=== PATIENT | male | born 1995 | race African-American/Black ===

== ENCOUNTER 2018-01-09 18:35 | Emergency (ER) | payer OTHER ==
[2018-01-09 19:26] LABS: #Lymphocytes 1.9 thou/uL (1.20-3.40); #Monocytes 0.4 thou/uL (0.11-0.59); #Neutrophils 3.3 thou/uL (1.40-6.50); %Basophils 0.3 % (0.0-1.0); %Eosinophils 0.8 % (0.0-10.0); %Lymphocytes 33.3 % (21.0-51.0); %Monocytes 7.5 % (0.0-10.0); %Neutrophils 58.1 % (42.0-75.0); Hemoglobin 14.8 g/dL (14.0-18.0); Mean Corpuscular HGB CONC 34.9 g/dL (32.0-36.0); Mean Corpuscular Hemoglobin 30.4 pg (27.0-31.0); Mean Corpuscular Volume 87.1 fl (80.0-94.0); Mean Platelet Volume 7.1 fL (7.4-10.4); Platelet Count 222 thou/uL (130-400); RBC Distribution Width 12.2 % (11.5-14.5); Red Blood Cell (RBC) Count 4.86 mill/uL (4.70-6.10); White Blood Cell (WBC) Count 5.6 thou/uL (4.8-10.8)
[2018-01-09 19:45] LABS: Anion Gap 10 mmol/L (10-20); BUN (Urea Nitrogen) 15 mg/dL (8.9-20.6); CK (CPK) 56 U/L (30-200); Calc. Creatinine Clearance 0 mL/min (70-130); Calcium 9.4 mg/dL (7.8-10.44); Carbon Dioxide 28 mmol/L (22-29); Chloride 105 mmol/L (98-107); Estimated GFR-MDRD Greater than 90; Potassium 3.9 mmol/L (3.5-5.1)
[2018-01-09 19:51] LABS: Sodium 139 mmol/L (136-145)
[2018-01-09 19:53] LABS: Glucose 51 mg/dL (70-105)
--- NOTE | 2018-01-09 19:53 | RAD ---
CHEST ONE VIEW UPRIGHT PORTABLE: 01/09/18 HISTORY: 22-year-old male with history of syncope. Monitor leads overlie the chest. Heart size is within normal limits. The lungs are clear. IMPRESSION: No acute intrathoracic disease. POS: [facility]
== END 2018-01-09 20:06 | disposition home or self-care (01) ==
LOC: ERS 18:35
DX: F14.10 Cocaine abuse, uncomplicated (principal); R55 Syncope and collapse; E86.0 Dehydration; F31.9 Bipolar disorder, unspecified; F90.9 Attention-deficit hyperactivity disorder, unspecified type; G47.00 Insomnia, unspecified; F17.210 Nicotine dependence, cigarettes, uncomplicated
CPT/HCPCS: 36415; 36416; 71045; 80048; 82550; 85025; 93005; 96360

== ENCOUNTER 2018-06-11 02:47 | Emergency (ER) | payer OTHER ==
[2018-06-11 03:59] LABS: #Lymphocytes 1.3 thou/uL (1.20-3.40); #Monocytes 0.5 thou/uL (0.11-0.59); #Neutrophils 6.3 thou/uL (1.40-6.50); %Basophils 0.4 % (0.0-1.0); %Eosinophils 0.3 % (0.0-10.0); %Lymphocytes 15.4 % (21.0-51.0); %Monocytes 5.8 % (0.0-10.0); Hemoglobin 16.3 g/dL (14.0-18.0); Mean Corpuscular HGB CONC 33.2 g/dL (32.0-36.0); Mean Corpuscular Hemoglobin 29.9 pg (27.0-31.0); Mean Platelet Volume 7.8 fL (7.4-10.4); Platelet Count 303 thou/uL (130-400); RBC Distribution Width 11.8 % (11.5-14.5); Red Blood Cell (RBC) Count 5.46 mill/uL (4.70-6.10); White Blood Cell (WBC) Count 8.1 thou/uL (4.8-10.8)
[2018-06-11 04:21] LABS: Acetaminophen Less than 6.0 mcg/mL (10.0-30.0); Alcohol Less than 10 mg/dL (Less than 10); Salicylate Less than 8.0 mg/dL (15.0-30.0)
[2018-06-11 04:22] LABS: ALT (SGPT) 17 U/L (8-55); AST (SGOT) 19 U/L (5-34); Albumin 4.9 g/dL (3.5-5.0); Alkaline Phosphatase 68 U/L (40-150); Anion Gap 17 mmol/L (10-20); BUN (Urea Nitrogen) 14 mg/dL (8.9-20.6); Bilirubin, Total 0.8 mg/dL (0.2-1.2); Calc. Creatinine Clearance 0 mL/min (70-130); Calcium 10.3 mg/dL (7.8-10.44); Carbon Dioxide 24 mmol/L (22-29); Chloride 104 mmol/L (98-107); Estimated GFR-MDRD Greater than 90; Globulin 3.5 g/dL (2.4-3.5); Glucose 61 mg/dL (70-105); Potassium 3.8 mmol/L (3.5-5.1); Protein, Total 8.4 g/dL (6.0-8.3); Sodium 141 mmol/L (136-145)
[2018-06-11 05:30] LABS: Bilirubin Negative (Negative); Blood, Urine Negative (Negative); Clarity CLEAR (Clear); Glucose, Urine (Dipstick) Negative (Negative); Leukocyte Negative (Negative); Nitrite Negative (Negative); Protein, Urine (Dipstick) Trace mg/dL (Neg-Trace); Urobilinogen 0.2 mg/dL (0.2-1.0)
[2018-06-11 05:49] LABS: Medtox Reader # READER 1
[2018-06-11 05:50] LABS: Amphetamine Detected (NotDetected); Barbiturates Screen Not Detected (NotDetected); Benzodiazepine Screen Not Detected (NotDetected); Cocaine Metabolite Screen Not Detected (NotDetected); Medtox Control Line Valid? VALID (VALID); Methadone Not Detected (NotDetected); Methamphetamine Not Detected (NotDetected); Opiate Screen Not Detected (NotDetected); Oxycodone Screen Not Detected (NotDetected); Phencyclidine (PCP) Not Detected (NotDetected); THC/Cannabinoid Screen Detected (NotDetected); Tricyclic Screen Not Detected (NotDetected)
[2018-06-11] MEDS ORDERED: Ziprasidone 20 MG CAP ONE (07:54)
--- NOTE | 2018-06-22 16:14 | EKG ---
Test Reason : Blood Pressure : / mmHG Vent. Rate : 067 BPM Atrial Rate : 067 BPM P-R Int : 096 ms QRS Dur : 090 ms QT Int : 400 ms P-R-T Axes : -27 047 046 degrees QTc Int : 422 ms Sinus rhythm with short DE Otherwise normal ECG Reconfirmed by COOKIE PIPER ([id number]), editor house organ SONIA LIZ ([id number]) on 06/22/2018 4:14:21 PM Referred By: Confirmed By:COOKIE PIPER
== END 2018-06-11 10:20 | disposition home or self-care (01) ==
LOC: ERS 02:47
DX: F15.129 Other stimulant abuse with intoxication, unspecified (principal); F31.9 Bipolar disorder, unspecified; F90.9 Attention-deficit hyperactivity disorder, unspecified type; G47.00 Insomnia, unspecified; F17.210 Nicotine dependence, cigarettes, uncomplicated
CPT/HCPCS: 80053; 80306; 80307; 81003; 84443; 85025; 93005; 96360; 96361

== ENCOUNTER 2018-09-17 01:08 | Emergency (ER) | payer OTHER ==
[2018-09-17 01:53] LABS: #Lymphocytes 0.8 thou/uL (1.20-3.40); #Monocytes 0.4 thou/uL (0.11-0.59); #Neutrophils 3.9 thou/uL (1.40-6.50); %Basophils 0.5 % (0.0-1.0); %Eosinophils 0.8 % (0.0-10.0); %Lymphocytes 15.6 % (21.0-51.0); %Monocytes 8.4 % (0.0-10.0); %Neutrophils 74.8 % (42.0-75.0); Hemoglobin 14.1 g/dL (14.0-18.0); Mean Corpuscular Hemoglobin 30.5 pg (27.0-31.0); Mean Corpuscular Volume 89.7 fL (78.0-98.0); Mean Platelet Volume 7.8 fL (7.4-10.4); Platelet Count 239 thou/uL (130-400); RBC Distribution Width 11.5 % (11.5-14.5); Red Blood Cell (RBC) Count 4.61 mill/uL (4.70-6.10); White Blood Cell (WBC) Count 5.3 thou/uL (4.8-10.8)
[2018-09-17 02:13] LABS: Acetaminophen Less than 6.0 mcg/mL (10.0-30.0); Alcohol Less than 10 mg/dL (Less than 10); Salicylate Less than 8.0 mg/dL (15.0-30.0)
[2018-09-17 02:45] LABS: Bilirubin Negative (Negative); Blood, Urine Negative (Negative); Clarity CLEAR (Clear); Glucose, Urine (Dipstick) Negative (Negative); Leukocyte Negative (Negative); Nitrite Negative (Negative); Protein, Urine (Dipstick) Trace mg/dL (Neg-Trace); Specific Gravity, Urine 1.031 (1.002-1.036); Urobilinogen 0.2 mg/dL (0.2-1.0); pH, Urine 5.5 (5.0-9.0)
[2018-09-17 02:54] LABS: ALT (SGPT) 11 U/L (8-55); AST (SGOT) 16 U/L (5-34); Albumin 3.9 g/dL (3.5-5.0); Alkaline Phosphatase 62 U/L (40-150); Anion Gap 13 mmol/L (10-20); BUN (Urea Nitrogen) 12 mg/dL (8.9-20.6); Bilirubin, Total 0.4 mg/dL (0.2-1.2); CK (CPK) 163 U/L (30-200); Calc. Creatinine Clearance 0 mL/min (70-130); Calcium 9.1 mg/dL (7.8-10.44); Carbon Dioxide 25 mmol/L (22-29); Chloride 106 mmol/L (98-107); Estimated GFR-MDRD Greater than 90; Globulin 2.6 g/dL (2.4-3.5); Glucose 85 mg/dL (70-105); Potassium 3.8 mmol/L (3.5-5.1); Protein, Total 6.5 g/dL (6.0-8.3); Sodium 140 mmol/L (136-145)
[2018-09-17 02:54] LABS: Amphetamine Detected (NotDetected); Barbiturates Screen Not Detected (NotDetected); Benzodiazepine Screen Not Detected (NotDetected); Cocaine Metabolite Screen Not Detected (NotDetected); Medtox Control Line Valid? VALID (VALID); Medtox Reader # READER 1; Methadone Not Detected (NotDetected); Methamphetamine Detected (NotDetected); Opiate Screen Not Detected (NotDetected); Oxycodone Screen Not Detected (NotDetected); Phencyclidine (PCP) Not Detected (NotDetected); THC/Cannabinoid Screen Detected (NotDetected); Tricyclic Screen Not Detected (NotDetected)
--- NOTE | 2018-09-17 07:42 | RAD ---
2 VIEWS CHEST: Date: 09/17/18 COMPARISON: None. HISTORY: Congestion and productive green cough. FINDINGS: Single view of the chest shows a normal sized cardiomediastinal silhouette. There is no evidence of c onsolidation, mass, or pleural effusion. There is scoliotic curvature of the spine. IMPRESSION: No evidence of acute cardiopulmonary disease. POS: [facility]
== END 2018-09-17 10:45 | disposition home or self-care (01) ==
LOC: ERS 01:08
DX: F32.9 Major depressive disorder, single episode, unspecified (principal); R09.81 Nasal congestion; B20 Human immunodeficiency virus [HIV] disease; F90.9 Attention-deficit hyperactivity disorder, unspecified type; F17.210 Nicotine dependence, cigarettes, uncomplicated
CPT/HCPCS: 36415; 71046; 80053; 80306; 80307; 81003; 82550; 84443; 85025

== ENCOUNTER 2018-09-27 19:55 | Observation (INO) | payer OTHER ==
[2018-09-27] MEDS ORDERED: Acetaminophen 325 MG TAB PO PRN (21:51)
[2018-09-27] MEDS ORDERED: Ondansetron ODT 4 MG TAB PO PRN (21:51)
[2018-09-27] MEDS ORDERED: Ondansetron PF 4 MG/2 ML Vial IVP PRN (21:51)
[2018-09-27 22:51] VITALS: BMI 20.9
[2018-09-27] MEDS: ALPRAZolam 0.25 MG TAB PO PRN (23:15)
[2018-09-27] MEDS ORDERED: Sodium Chloride 0.9% 1,000 ML IV SCH (23:15)
[2018-09-28] MEDS: Sodium Chloride 0.9% 1,000 ML IV SCH ×3 (05:51→20:34)
--- NOTE | 2018-09-28 06:19 | HP ---
PRIMARY CARE DOCTOR: The patient has no PCP. CODE STATUS: Full code. TIME OF EVALUATION: 08:50 p.m. CHIEF COMPLAINT: Suicidal attempt. HISTORY OF PRESENT ILLNESS: This is a 22-year-old male patient with past medical history of psych disorders and previous suicidal attempts, came to the hospital after having an episode of suicidal attempt. The patient reported that he took 3 MDMA prior to presentation. The patient reported that he was depressed and was trying to kill himself in order to call attention from other people, no alleviating factors. The patient seems more relief now. Suicide ideation is still present. REVIEW OF SYSTEMS: CONSTITUTIONAL: No fever, chills, or generalized weakness. RESPIRATORY: No cough, sputum production, or shortness of breath. CARDIOVASCULAR: No chest pain or palpitations. GASTROINTESTINAL: No nausea. No vomiting, diarrhea, or abdominal pain. FAITH HEALER: The patient is drowsy, but more alert than before as per report. No headache or feeling lightheaded. GENITOURINARY: No burning on urination. EXTREMITIES: No leg swelling. PSYCH: The patient has suicidal ideation. All other systems were reviewed and negative except for the findings mentioned above. PAST MEDICAL HISTORY: Positive for HIV. Follows with Dr. Xiong. PAST SURGICAL HISTORY: No surgical history. PSYCH HISTORY: Previous admissions due to suicidal ideation, bipolar disorder. SOCIAL HISTORY: Drinks everyday, alcohol every other today. Smokes cigarettes. Abuse methamphetamines, alcohol, and tobacco. KNOWN ALLERGIES: 1. Cipro. 2. Penicillin. 3. Sulfamethoxazole. PHYSICAL EXAMINATION: VITAL SIGNS: Blood pressure 127/88 with heart rate 67, respiratory rate was 18, temperature 98.4, pain 0/10, oxygen saturation was 100 on room air. GENERAL APPEARANCE: The patient is alert, oriented, not in acute distress. HEENT: Eyes, normal conjunctivae. Moist oral mucosa. Anicteric. NECK: No JVD. RESPIRATORY: Bilateral air entry. No rales. No wheezes. Symmetric expansion. CARDIOVASCULAR: Normal rate, regular rhythm. No murmurs. No gallops. No edema. ABDOMEN: Soft. Normal bowel sounds. MUSCULOSKELETAL: Baseline range of motion and strength. No tenderness. SKIN: Warm and intact. No pallor. No rash. No redness. Peripheral pulses are present. Capillary refill seems to intact. NEUROLOGIC: No evidence of any new focal weakness. Baseline speech. Cranial nerves seems to be intact. PSYCH: The patient is depressed, suicidal ideation is still active. LABORATORY DATA: Labs were reviewed. White count 8.5, hemoglobin 14.4, MCV 87. Chemistry was normal except for chloride 108, carbon dioxide 21, glucose 108. AST 142. CK 4220. UA was negative. Toxicology was positive for amphetamines, methamphetamines, and cannabinoids. [place] is 8. ASSESSMENT AND PLAN: The patient will be placed in the hospital with following medical problems: 1. Suicidal ideation and attempt. The patient got overdose. The patient is doing better now. We will continue with a sitter and will need a psych evaluation in the morning. 2. He has elevated CK of 4220. We will give hydration. We will monitor CK and adjust treatment as needed. Monitor kidney function. 3. Deep venous thrombosis prophylaxis. 4. High risk due to suicidal attempt. Job ID: [id number]
[2018-09-28 06:40] LABS: #Eosinphils 0.1 thou/uL (0.0-0.7); #Lymphocytes 1.8 thou/uL (1.20-3.40); #Monocytes 0.7 thou/uL (0.11-0.59); #Neutrophils 4.4 thou/uL (1.40-6.50); %Basophils 0.4 % (0.0-1.0); %Eosinophils 1.2 % (0.0-10.0); %Lymphocytes 26.1 % (21.0-51.0); %Monocytes 9.3 % (0.0-10.0); %Neutrophils 63.1 % (42.0-75.0); Hemoglobin 13.4 g/dL (14.0-18.0); Mean Corpuscular HGB CONC 33.4 g/dL (32.0-36.0); Mean Corpuscular Hemoglobin 30.2 pg (27.0-31.0); Mean Corpuscular Volume 90.6 fL (78.0-98.0); Platelet Count 280 thou/uL (130-400); RBC Distribution Width 11.6 % (11.5-14.5); Red Blood Cell (RBC) Count 4.45 mill/uL (4.70-6.10); White Blood Cell (WBC) Count 6.9 thou/uL (4.8-10.8)
[2018-09-28 07:02] LABS: Anion Gap 12 mmol/L (10-20); BUN (Urea Nitrogen) 11 mg/dL (8.9-20.6); Calc. Creatinine Clearance 101 mL/min (70-130); Carbon Dioxide 22 mmol/L (22-29); Chloride 111 mmol/L (98-107); Estimated GFR-MDRD Greater than 90; Glucose 75 mg/dL (70-105); Potassium 4.4 mmol/L (3.5-5.1); Sodium 141 mmol/L (136-145)
[2018-09-28] MEDS: Enoxaparin Sodium 40 MG/0.4 ML SYRINGE SC SCH (07:41)
[2018-09-28] MEDS: ALPRAZolam 0.25 MG TAB PO PRN ×2 (08:34→20:34)
--- NOTE | 2018-09-28 14:00 | PDOC.PN ---
- Subjective Encounter Start Date: 09/28/18 Encounter Start Time: 13:31 Subjective: Patient found sleeping. Denies any complaints. -: Has been tolerating food/liquids. No n/v. No abdominal pain. -: Denies any chest pain or sob. Feeling well in himself. At present denies any suicidal ideations. - Objective Resuscitation Status - Order Detail: 09/27/18 21:51 Resuscitation Status Routine Resuscitation Status: FULL: Full Resuscitation Vital Signs & Weight: Vital Signs (12 hours) Temp Pulse Resp BP Pulse Ox 09/28/18 11:29 97.9 F 59 L 20 132/95 H 95 09/28/18 08:00 98.6 F 69 18 127/83 99 09/28/18 04:08 98.3 F 72 16 122/76 97 Weight Weight 137 lb 8 oz I&O: 09/27/18 09/28/18 09/29/18 06:59 06:59 06:59 Intake Total 2845 360 Balance 2845 360 Result Diagrams: 09/28/18 06:01 09/28/18 06:01 Phys Exam - Physical Examination Constitutional: NAD HEENT: PERRLA, moist MMs, oral pharynx no lesions Neck: full ROM Respiratory: clear to auscultation bilateral Cardiovascular: RRR Gastrointestinal: soft, non-tender, no distention, positive bowel sounds Musculoskeletal: no edema, pulses present Neurological: normal sensation, moves all 4 limbs Lymphatic: no nodes Psychiatric: normal affect, A&O x 3 Skin: no rash, normal turgor, cap refill <2 seconds Dx/Plan (1) Overdose Code(s): T50.901A - POISONING BY UNSP DRUG/MEDS/BIOL SUBST, ACCIDENTAL, INIT Status: Acute (2) Suicidal ideation Code(s): R45.851 - SUICIDAL IDEATIONS Status: Acute (3) Suicidal intent Code(s): R45.851 - SUICIDAL IDEATIONS Status: Acute (4) Bipolar disorder Code(s): F31.9 - BIPOLAR DISORDER, UNSPECIFIED Status: Chronic - Plan cont current plan of care CK improved from 4220 to 1869 -: Continue IV fluids. Recheck in AM. -: Patient asymptomatic. -: For [facility] eval once medically cleared. -: Denies SI at present, continue with sitter. * . Review of Systems - Review of Systems Constitutional: negative: fever, chills, sweats, weakness, malaise Eyes: negative: Pain, Vision Change, Conjunctivae Inflammation, Eyelid Inflammation, Redness ENT: negative: Mouth Pain, Mouth Swelling, Throat Pain, Throat Swelling Respiratory: negative: Cough, Dry, Shortness of Breath, Hemoptysis, SOB with Excertion, Pleuritic Pain, Sputum, Wheezing Cardiovascular: negative: chest pain, palpitations, orthopnea, paroxysmal nocturnal dyspnea, edema, light headedness, other Gastrointestinal: negative: Nausea, Vomiting, Abdominal Pain, Diarrhea, Constipation, Melena, Hematochezia, Other Genitourinary: negative: Dysuria, Frequency, Hematuria Skin: negative: Rash Neurological: negative: Weakness, Numbness, Incoordination, Change in Speech, Confusion, Seizures - Medications/Allergies Allergies/Adverse Reactions: Allergies Allergy/AdvReac Type Severity Reaction Status Date / Time ciprofloxacin [From Cipro] Allergy Verified 09/27/18 22:48 ciprofloxacin HCl Allergy Verified 09/27/18 22:48 [From Cipro] Penicillins Allergy Verified 09/27/18 22:48 sulfamethoxazole Allergy Verified 09/27/18 22:48 [From Bactrim] trimethoprim [From Bactrim] Allergy Verified 09/27/18 22:48 Medications: Current Medications Acetaminophen (Tylenol) 650 mg PO Q4H PRN PRN Reason: Headache/Fever/Mild Pain (1-3) Last Admin: 09/28/18 10:55 Dose: 650 mg Alprazolam (Xanax) 0.25 mg PO Q12H PRN PRN Reason: Anxiety Last Admin: 09/28/18 08:34 Dose: 0.25 mg Enoxaparin Sodium (Lovenox) 40 mg SC 0900 [facility] Last Admin: 09/28/18 07:41 Dose: 40 mg Sodium Chloride (Normal Saline 0.9%) 1,000 mls @ 150 mls/hr IV .Q6H40M [facility] Last Admin: 09/28/18 11:24 Dose: 1,000 mls Ondansetron HCl (Zofran Odt) 4 mg PO Q6H PRN PRN Reason: Nausea/Vomiting Ondansetron HCl (Zofran) 4 mg IVP Q6H PRN PRN Reason: Nausea/Vomiting Dolutegravir Sodium ([Tivicay] 50 Mg)) 1 each PO DAILY GHANSHYAM Emtricitabine/Tenofov Alafenam [ Descovy 200-25 Mg Tablet] 1 Ta 1 each PO DAILY GHANSHYAM
[2018-09-29] MEDS: Sodium Chloride 0.9% 1,000 ML IV SCH ×3 (03:20→14:22)
[2018-09-29 07:37] LABS: #Eosinphils 0.1 thou/uL (0.0-0.7); #Lymphocytes 1.1 thou/uL (1.20-3.40); #Monocytes 0.5 thou/uL (0.11-0.59); #Neutrophils 4.6 thou/uL (1.40-6.50); %Basophils 0.2 % (0.0-1.0); %Eosinophils 0.9 % (0.0-10.0); %Lymphocytes 17.1 % (21.0-51.0); %Monocytes 8.2 % (0.0-10.0); %Neutrophils 73.5 % (42.0-75.0); Hemoglobin 13.7 g/dL (14.0-18.0); Mean Corpuscular HGB CONC 33.1 g/dL (32.0-36.0); Mean Corpuscular Volume 90.6 fL (78.0-98.0); Mean Platelet Volume 7.9 fL (7.4-10.4); Platelet Count 257 thou/uL (130-400); RBC Distribution Width 11.8 % (11.5-14.5); Red Blood Cell (RBC) Count 4.56 mill/uL (4.70-6.10); White Blood Cell (WBC) Count 6.3 thou/uL (4.8-10.8)
[2018-09-29 07:52] LABS: Anion Gap 10 mmol/L (10-20); BUN (Urea Nitrogen) 7 mg/dL (8.9-20.6); CK (CPK) 629 U/L (30-200); Calc. Creatinine Clearance 120 mL/min (70-130); Calcium 8.9 mg/dL (7.8-10.44); Carbon Dioxide 25 mmol/L (22-29); Chloride 108 mmol/L (98-107); Estimated GFR-MDRD Greater than 90; Glucose 81 mg/dL (70-105); Potassium 3.9 mmol/L (3.5-5.1); Sodium 139 mmol/L (136-145)
[2018-09-29] MEDS: Enoxaparin Sodium 40 MG/0.4 ML SYRINGE SC SCH (08:23)
[2018-09-29] MEDS: ALPRAZolam 0.25 MG TAB PO PRN (08:28)
[2018-09-29 11:57] VITALS: BP 130/77; TEMP 98.2
[2018-09-29] MEDS ORDERED: TENOFOV ALAFENAM PO SCH (14:00)
[2018-09-29] MEDS ORDERED: EMTRICITABINE PO SCH (14:00)
[2018-09-29] MEDS ORDERED: DOLUTEGRAVIR SODIUM 50 MG PO SCH (14:00)
[2018-09-29] MEDS: TENOFOV ALAFENAM PO SCH ×2 (14:36→14:37)
[2018-09-29] MEDS: EMTRICITABINE PO SCH ×2 (14:36→14:37)
[2018-09-29] MEDS: DOLUTEGRAVIR SODIUM 50 MG PO SCH (14:36)
--- NOTE | 2018-09-29 16:41 | PDOC.EVN ---
Event Note - Event Note Event Note: management and discharge discussed with Alessandro Womack. agree
== END 2018-09-29 15:11 ==
LOC: ERS 19:55 → T4-B 20:26 → UNDODISOB 09-29 14:00
PROVIDERS: ADMIT Hospitalist; ATTEND Hospitalist
DX: T43.642A Poisoning by ecstasy, intentional self-harm, initial encounter (principal); F31.9 Bipolar disorder, unspecified; F15.10 Other stimulant abuse, uncomplicated; F17.210 Nicotine dependence, cigarettes, uncomplicated; Z21 Asymptomatic human immunodeficiency virus [HIV] infection status; Z88.1 Allergy status to other antibiotic agents; Z88.0 Allergy status to penicillin; Z88.2 Allergy status to sulfonamides; Z79.899 Other long term (current) drug therapy
CPT/HCPCS: 36415; 80048; 82550; 85025; 96360; 96361; 96372; 99285; G0378; J1650

== ENCOUNTER 2018-10-15 00:16 | Emergency (ER) | payer OTHER ==
[2018-10-15] MEDS ORDERED: Lorazepam 1 MG TAB ONE (00:31)
== END 2018-10-15 01:18 | disposition home or self-care (01) ==
LOC: ERS 00:16
DX: F41.9 Anxiety disorder, unspecified (principal); F31.9 Bipolar disorder, unspecified; B20 Human immunodeficiency virus [HIV] disease; F90.9 Attention-deficit hyperactivity disorder, unspecified type; G47.00 Insomnia, unspecified; F17.210 Nicotine dependence, cigarettes, uncomplicated; Z79.899 Other long term (current) drug therapy
CPT/HCPCS: 99283

== ENCOUNTER 2019-10-08 14:02 | Emergency (ER) | payer OTHER ==
[2019-10-08] MEDS ORDERED: diphenhydrAMINE 50 MG/ML VIAL ONE (14:57)
[2019-10-08] MEDS ORDERED: Famotidine/PF 20 mg/2ml Vial ONE (14:57)
[2019-10-08] MEDS ORDERED: methylPREDNISolone Sod Succ/PF 125 MG/2 ML VIAL ONE (14:57)
[2019-10-08] MEDS ORDERED: EPINEPHrine 1 MG/ML AMP ONE ×2 (15:01→15:06)
[2019-10-08 15:20] LABS: #Eosinphils 0.1 thou/uL (0.0-0.7); #Monocytes 0.5 thou/uL (0.11-0.59); #Neutrophils 3.4 thou/uL (1.40-6.50); %Basophils 0.7 % (0.0-1.0); %Eosinophils 1.1 % (0.0-10.0); %Lymphocytes 33.4 % (21.0-51.0); %Monocytes 7.8 % (0.0-10.0); Hemoglobin 16.1 g/dL (14.0-18.0); Mean Corpuscular HGB CONC 34.5 g/dL (32.0-36.0); Mean Corpuscular Hemoglobin 31.3 pg (27.0-31.0); Mean Corpuscular Volume 90.8 fL (78.0-98.0); Mean Platelet Volume 8.1 fL (7.4-10.4); Platelet Count 246 thou/uL (130-400); RBC Distribution Width 11.9 % (11.5-14.5); Red Blood Cell (RBC) Count 5.16 mill/uL (4.70-6.10)
[2019-10-08 15:52] LABS: ALT (SGPT) 13 U/L (8-55); AST (SGOT) 12 U/L (5-34); Albumin 4.3 g/dL (3.5-5.0); Alkaline Phosphatase 72 U/L (40-110); Anion Gap 13 mmol/L (10-20); BUN (Urea Nitrogen) 14 mg/dL (8.9-20.6); Bilirubin, Total 0.5 mg/dL (0.2-1.2); Calc. Creatinine Clearance 0 mL/min (70-130); Calcium 9.5 mg/dL (7.8-10.44); Carbon Dioxide 26 mmol/L (22-29); Chloride 105 mmol/L (98-107); Estimated GFR-MDRD Greater than 90; Globulin 2.7 g/dL (2.4-3.5); Glucose 89 mg/dL (70-105); Potassium 3.7 mmol/L (3.5-5.1); Sodium 140 mmol/L (136-145)
== END 2019-10-08 19:55 | disposition short-term general hospital (02) ==
LOC: ERS 14:02
DX: T78.2XXA Anaphylactic shock, unspecified, initial encounter (principal); B20 Human immunodeficiency virus [HIV] disease; F90.9 Attention-deficit hyperactivity disorder, unspecified type; G47.00 Insomnia, unspecified; F17.210 Nicotine dependence, cigarettes, uncomplicated; F31.9 Bipolar disorder, unspecified; Z79.899 Other long term (current) drug therapy
CPT/HCPCS: 80053; 85025; 93005; 94640; 94760; 96361; 96372; 96374; 96375; J0171; J1200; J2930; J7620; S0028

== ENCOUNTER 2019-10-29 12:26 | Emergency (ER) | payer OTHER ==
[2019-10-29 13:39] LABS: #Eosinphils 0.1 thou/uL (0.0-0.7); #Lymphocytes 1.5 thou/uL (1.20-3.40); #Monocytes 0.6 thou/uL (0.11-0.59); %Basophils 0.4 % (0.0-1.0); %Eosinophils 1.4 % (0.0-10.0); %Lymphocytes 27.8 % (21.0-51.0); %Neutrophils 58.4 % (42.0-75.0); Mean Corpuscular HGB CONC 34.4 g/dL (32.0-36.0); Mean Corpuscular Hemoglobin 30.9 pg (27.0-31.0); Mean Corpuscular Volume 89.8 fL (78.0-98.0); RBC Distribution Width 11.4 % (11.5-14.5); Red Blood Cell (RBC) Count 5.17 mill/uL (4.70-6.10); White Blood Cell (WBC) Count 5.2 thou/uL (4.8-10.8)
[2019-10-29 13:53] LABS: Acetaminophen Less than 6.0 mcg/mL (10.0-30.0); Alcohol Less than 10 mg/dL (Less than 10); Mean Platelet Volume 9.2 fL (7.4-10.4); Platelet Count 204 thou/uL (130-400); Platelet Morphology Comment Appears Adequate; Salicylate Less than 8.0 mg/dL (15.0-30.0)
[2019-10-29 13:54] LABS: ALT (SGPT) 12 U/L (8-55); AST (SGOT) 14 U/L (5-34); Albumin 4.1 g/dL (3.5-5.0); Alkaline Phosphatase 67 U/L (40-110); Anion Gap 15 mmol/L (10-20); BUN (Urea Nitrogen) 13 mg/dL (8.9-20.6); Bilirubin, Total 0.8 mg/dL (0.2-1.2); CK (CPK) 126 U/L (30-200); Calc. Creatinine Clearance 0 mL/min (70-130); Calcium 9.5 mg/dL (7.8-10.44); Carbon Dioxide 24 mmol/L (22-29); Chloride 104 mmol/L (98-107); Estimated GFR-MDRD Greater than 90; Globulin 2.5 g/dL (2.4-3.5); Glucose 63 mg/dL (70-105); Protein, Total 6.6 g/dL (6.0-8.3); Sodium 139 mmol/L (136-145)
[2019-10-29 14:46] LABS: Bilirubin Negative (Negative); Blood, Urine Negative (Negative); Clarity Clear (Clear); Glucose, Urine (Dipstick) Normal (Negative); Leukocyte Negative Leu/uL (Negative); Nitrite Negative (Negative); Protein, Urine (Dipstick) Negative (Neg-Trace); Urobilinogen Normal mg/dL (Less than 2)
[2019-10-29 14:58] LABS: Medtox Reader # READER 4
[2019-10-29 14:59] LABS: Amphetamine Detected (NotDetected); Barbiturates Screen Not Detected (NotDetected); Benzodiazepine Screen Detected (NotDetected); Cocaine Metabolite Screen Not Detected (NotDetected); Medtox Control Line Valid? VALID (VALID); Methadone Not Detected (NotDetected); Methamphetamine Detected (NotDetected); Opiate Screen Not Detected (NotDetected); Oxycodone Screen Not Detected (NotDetected); Phencyclidine (PCP) Not Detected (NotDetected); THC/Cannabinoid Screen Detected (NotDetected); Tricyclic Screen Not Detected (NotDetected)
[2019-10-29] MEDS ORDERED: hydrOXYzine Pamoate 25 mg Capsule ONE (20:34)
== END 2019-10-29 21:01 ==
LOC: ERS 12:26
DX: R45.851 Suicidal ideations (principal); B20 Human immunodeficiency virus [HIV] disease; F31.9 Bipolar disorder, unspecified; F90.9 Attention-deficit hyperactivity disorder, unspecified type; F17.210 Nicotine dependence, cigarettes, uncomplicated
CPT/HCPCS: 36415; 80053; 80178; 80306; 80307; 81003; 82550; 84443; 85025; 93005; Q0177

== ENCOUNTER 2020-11-01 23:43 | Emergency (ER) | payer OTHER ==
[2020-11-02 00:19] LABS: #Lymphocytes 1.9 thou/uL (1.20-3.40); #Monocytes 0.9 thou/uL (0.11-0.59); #Neutrophils 6.4 thou/uL (1.40-6.50); %Basophils 0.5 % (0.0-1.0); %Eosinophils 0.5 % (0.0-10.0); %Lymphocytes 20.7 % (21.0-51.0); %Monocytes 9.2 % (0.0-10.0); %Neutrophils 69.1 % (42.0-75.0); Hemoglobin 16.1 g/dL (14.0-18.0); Mean Corpuscular HGB CONC 34.8 g/dL (32.0-36.0); Mean Corpuscular Hemoglobin 30.3 pg (27.0-31.0); Mean Platelet Volume 7.8 fL (7.4-10.4); Platelet Count 304 thou/uL (130-400); RBC Distribution Width 11.2 % (11.5-14.5); Red Blood Cell (RBC) Count 5.33 mill/uL (4.70-6.10); White Blood Cell (WBC) Count 9.3 thou/uL (4.8-10.8)
[2020-11-02 00:29] LABS: Bacteria/HPF None Seen HPF (None Seen); Bilirubin 1+ (Negative); Blood, Urine Negative (Negative); Clarity Clear (Clear); Glucose, Urine (Dipstick) Normal (Negative); Ketone, Urine 60 mg/dL (Negative); Leukocyte Negative Leu/uL (Negative); Mucous/LPF 4+ LPF (<2+); Nitrite Negative (Negative); Protein, Urine (Dipstick) 50 mg/dL (Neg-Trace); RBC/HPF 0-3 HPF (0-3); Specific Gravity, Urine 1.034 (1.002-1.036); Squamous Epithelial 0-3 HPF (0-3); WBC/HPF 0-3 HPF (0-3); pH, Urine 5.5 (5.0-9.0)
[2020-11-02 00:36] LABS: Amphetamine Detected (NotDetected); Barbiturates Screen Not Detected (NotDetected); Benzodiazepine Screen Not Detected (NotDetected); Cocaine Metabolite Screen Not Detected (NotDetected); Medtox Control Line Valid? VALID (VALID); Medtox Reader # READER 4; Methadone Not Detected (NotDetected); Methamphetamine Detected (NotDetected); Opiate Screen Not Detected (NotDetected); Oxycodone Screen Not Detected (NotDetected); Phencyclidine (PCP) Not Detected (NotDetected); THC/Cannabinoid Screen Detected (NotDetected); Tricyclic Screen Not Detected (NotDetected)
[2020-11-02 00:40] LABS: Acetaminophen Less than 6.0 mcg/mL (10.0-30.0); Alcohol Less than 10 mg/dL (Less than 10); Salicylate Less than 8.0 mg/dL (15.0-30.0)
[2020-11-02 00:41] LABS: ALT (SGPT) 18 U/L (8-55); AST (SGOT) 19 U/L (5-34); Albumin 4.3 g/dL (3.5-5.0); Alkaline Phosphatase 66 U/L (40-110); Anion Gap 19 mmol/L (10-20); BUN (Urea Nitrogen) 16 mg/dL (8.9-20.6); Calc. Creatinine Clearance 0 mL/min (70-130); Calcium 9.5 mg/dL (7.8-10.44); Carbon Dioxide 23 mmol/L (22-29); Chloride 100 mmol/L (98-107); Globulin 2.8 g/dL (2.4-3.5); Glucose 60 mg/dL (70-105); Potassium 3.6 mmol/L (3.5-5.1); Protein, Total 7.1 g/dL (6.0-8.3); Sodium 138 mmol/L (136-145)
[2020-11-02] MEDS ORDERED: hydrOXYzine 25 MG TAB ONE ×2 (04:36)
[2020-11-02 05:45] LABS: SARS-CoV-2 NAA Rapid Test Not Detected (NotDetected)
== END 2020-11-02 09:07 ==
LOC: ERS 23:43
DX: F15.10 Other stimulant abuse, uncomplicated (principal); R45.851 Suicidal ideations; Z21 Asymptomatic human immunodeficiency virus [HIV] infection status
CPT/HCPCS: 0240U; 36415; 80053; 80306; 80307; 81003; 81015; 84443; 85025; 93005

== ENCOUNTER 2021-01-24 14:26 | Emergency (ER) | payer OTHER | END 2021-01-24 16:10 | disposition left against medical advice (07) | LOC: ERS 14:26 | DX: Z53.21 Procedure and treatment not carried out due to patient leaving prior to being seen by health care provider (principal) ==

== ENCOUNTER → 2021-05-13 | Emergency (ER) | payer OTHER ==
[~2021-05-13] MED LIST: Acetaminophen 325 MG TAB PO PRN; Boostrix 0.5 ML (Tdap) VIAL IM ONE; DESCOVY PO SCH; Ibuprofen 600 MG TAB PO PRN; Lorazepam 2 MG/ML VIAL ONE; Lorazepam 2 MG/ML VIAL SLOW IVP SCH; Nicotine 14 MG PATCH TOP SCH; Sodium Chloride 0.9% 1,000 ML IV SCH; Sterile Water 10 ML ONE; TIVICAY 50 MG PO SCH; Ziprasidone 20 MG VIAL IM SCH; Ziprasidone 20 MG VIAL ONE; hydrOXYzine Pamoate 25 mg Capsule PO PRN; traZODone HCl 50 MG TAB ONE; traZODone HCl 50 MG TAB PO PRN
[2021-05-13 18:22] LABS: #Monocytes 0.7 thou/uL (0.11-0.59); #Neutrophils 12.3 thou/uL (1.40-6.50); %Eosinophils 0.1 % (0.0-10.0); %Monocytes 4.7 % (0.0-10.0); %Neutrophils 88.2 % (42.0-75.0); Hemoglobin 15.6 g/dL (14.0-18.0); Mean Corpuscular HGB CONC 34.1 g/dL (32.0-36.0); Mean Corpuscular Volume 87.9 fL (78.0-98.0); Mean Platelet Volume 7.8 fL (7.4-10.4); Platelet Count 358 thou/uL (130-400); RBC Distribution Width 11.8 % (11.5-14.5); Red Blood Cell (RBC) Count 5.19 mill/uL (4.70-6.10)
[2021-05-13 18:46] LABS: Acetaminophen Less than 6.0 mcg/mL (10.0-30.0); Alcohol Less than 10 mg/dL (Less than 10); CK (CPK) 415 U/L (30-200); Magnesium 2.4 mg/dL (1.6-2.6); Salicylate Less than 8.0 mg/dL (15.0-30.0)
[2021-05-13 18:47] LABS: ALT (SGPT) 15 U/L (8-55); AST (SGOT) 24 U/L (5-34); Albumin 4.5 g/dL (3.5-5.0); Alkaline Phosphatase 58 U/L (40-110); Anion Gap 15 mmol/L (10-20); BUN (Urea Nitrogen) 25 mg/dL (8.9-20.6); Bilirubin, Total 0.8 mg/dL (0.2-1.2); Calc. Creatinine Clearance 0 mL/min (70-130); Calcium 10.5 mg/dL (7.8-10.44); Carbon Dioxide 24 mmol/L (22-29); Chloride 108 mmol/L (98-107); Globulin 2.8 g/dL (2.4-3.5); Glucose 73 mg/dL (70-105); Lipase 11 U/L (8-78); Potassium 4.3 mmol/L (3.5-5.1); Protein, Total 7.3 g/dL (6.0-8.3); Sodium 143 mmol/L (136-145)
[2021-05-13 18:52] LABS: Amphetamine Detected (NotDetected); Barbiturates Screen Not Detected (NotDetected); Benzodiazepine Screen Not Detected (NotDetected); Cocaine Metabolite Screen Not Detected (NotDetected); Methadone Not Detected (NotDetected); Methamphetamine Detected (NotDetected); Opiate Screen Not Detected (NotDetected); Oxycodone Screen Not Detected (NotDetected); Phencyclidine (PCP) Not Detected (NotDetected); THC/Cannabinoid Screen Detected (NotDetected); Tricyclic Screen Not Detected (NotDetected)
[2021-05-13 20:21] LABS: SARS-CoV-2 NAA Rapid Test Not Detected (NotDetected)
== END ==
LOC: ERS 17:14
DX: R44.0 Auditory hallucinations (principal); N17.9 Acute kidney failure, unspecified; F17.210 Nicotine dependence, cigarettes, uncomplicated; Z20.822 Contact with and (suspected) exposure to COVID-19; Z23 Encounter for immunization
CPT/HCPCS: 80053; 80306; 80307; 82550; 83690; 83735; 84443; 85025; 90471; 93005; 96372; 96374; J2060; U0002

== ENCOUNTER 2021-05-27 06:44 | Emergency (ER) | payer OTHER ==
[2021-05-27] MEDS ORDERED: diphenhydrAMINE 50 MG/ML VIAL ONE ×2 (07:32→19:44)
[2021-05-27] MEDS ORDERED: Ziprasidone 20 MG VIAL ONE (07:33)
[2021-05-27] MEDS ORDERED: Lorazepam 2 MG/ML VIAL ONE ×3 (08:18→19:44)
[2021-05-27 09:41] LABS: Amphetamine Detected (NotDetected); Barbiturates Screen Not Detected (NotDetected); Benzodiazepine Screen Not Detected (NotDetected); Cocaine Metabolite Screen Not Detected (NotDetected); Methadone Not Detected (NotDetected); Methamphetamine Detected (NotDetected); Opiate Screen Not Detected (NotDetected); Oxycodone Screen Not Detected (NotDetected); Phencyclidine (PCP) Not Detected (NotDetected); THC/Cannabinoid Screen Detected (NotDetected); Tricyclic Screen Not Detected (NotDetected)
[2021-05-27 10:21] LABS: #Lymphocytes 1.5 thou/uL (1.20-3.40); #Monocytes 0.6 thou/uL (0.11-0.59); #Neutrophils 7.8 thou/uL (1.40-6.50); %Basophils 0.3 % (0.0-1.0); %Eosinophils 0.1 % (0.0-10.0); %Monocytes 6.3 % (0.0-10.0); %Neutrophils 78.3 % (42.0-75.0); Hemoglobin 15.5 g/dL (14.0-18.0); Mean Corpuscular HGB CONC 34.4 g/dL (32.0-36.0); Mean Corpuscular Hemoglobin 30.6 pg (27.0-31.0); Mean Platelet Volume 7.6 fL (7.4-10.4); Platelet Count 294 thou/uL (130-400); RBC Distribution Width 11.8 % (11.5-14.5); Red Blood Cell (RBC) Count 5.05 mill/uL (4.70-6.10)
[2021-05-27 10:44] LABS: Acetaminophen Less than 6.0 mcg/mL (10.0-30.0); Alcohol Less than 10 mg/dL (Less than 10); Salicylate Less than 8.0 mg/dL (15.0-30.0)
[2021-05-27 10:45] LABS: ALT (SGPT) 19 U/L (8-55); AST (SGOT) 18 U/L (5-34); Alkaline Phosphatase 55 U/L (40-110); Anion Gap 11 mmol/L (10-20); BUN (Urea Nitrogen) 12 mg/dL (8.9-20.6); Bilirubin, Total 0.7 mg/dL (0.2-1.2); CK (CPK) 409 U/L (30-200); Calc. Creatinine Clearance 0 mL/min (70-130); Calcium 9.5 mg/dL (7.8-10.44); Carbon Dioxide 27 mmol/L (22-29); Chloride 107 mmol/L (98-107); Globulin 2.6 g/dL (2.4-3.5); Glucose 85 mg/dL (70-105); Potassium 4.2 mmol/L (3.5-5.1); Protein, Total 6.6 g/dL (6.0-8.3); Sodium 141 mmol/L (136-145)
[2021-05-27] MEDS ORDERED: Haloperidol Lactate 5 MG/ML VIAL ONE ×2 (13:35→19:44)
[2021-05-27 18:36] LABS: SARS-CoV-2 NAA Rapid Test Not Detected (NotDetected)
[2021-05-27] MEDS ORDERED: hydrOXYzine Pamoate 25 mg Capsule ONE (19:04)
[2021-05-28] MEDS ORDERED: Lorazepam 1 MG TAB ONE (11:02)
== END 2021-05-27 12:26 | disposition home or self-care (01) ==
LOC: ERS 06:44
DX: F23 Brief psychotic disorder (principal); F12.10 Cannabis abuse, uncomplicated; F15.10 Other stimulant abuse, uncomplicated; F17.210 Nicotine dependence, cigarettes, uncomplicated; Z20.822 Contact with and (suspected) exposure to COVID-19
CPT/HCPCS: 36415; 80053; 80306; 80307; 82550; 84443; 85025; 96372; 99285; J1200; J1630; J2060; J3486; Q0177; U0002

== ENCOUNTER 2021-05-28 21:40 | Emergency (ER) | payer OTHER | END 2021-05-28 21:59 | LOC: ERS 21:40 | DX: F10.129 Alcohol abuse with intoxication, unspecified (principal) | CPT/HCPCS: 99284 ==

== ENCOUNTER 2021-05-30 01:46 | Emergency (ER) | payer OTHER ==
[2021-05-30] MEDS ORDERED: Ibuprofen 800 MG TAB ONE (02:22)
== END 2021-05-30 02:37 | disposition home or self-care (01) ==
LOC: ERS 01:46
DX: M25.572 Pain in left ankle and joints of left foot (principal); R51.9 Headache, unspecified

== ENCOUNTER 2021-05-30 03:23 | Emergency (ER) | payer OTHER ==
[2021-05-30 04:27] LABS: Amphetamine Not Detected (NotDetected); Barbiturates Screen Not Detected (NotDetected); Benzodiazepine Screen Detected (NotDetected); Cocaine Metabolite Screen Not Detected (NotDetected); Methadone Not Detected (NotDetected); Methamphetamine Not Detected (NotDetected); Opiate Screen Not Detected (NotDetected); Oxycodone Screen Not Detected (NotDetected); Phencyclidine (PCP) Not Detected (NotDetected); THC/Cannabinoid Screen Detected (NotDetected); Tricyclic Screen Not Detected (NotDetected)
[2021-05-30 04:40] LABS: #Eosinphils 0.1 thou/uL (0.0-0.7); #Lymphocytes 1.5 thou/uL (1.20-3.40); #Monocytes 0.6 thou/uL (0.11-0.59); #Neutrophils 4.9 thou/uL (1.40-6.50); %Basophils 0.4 % (0.0-1.0); %Lymphocytes 20.7 % (21.0-51.0); %Monocytes 8.6 % (0.0-10.0); %Neutrophils 68.3 % (42.0-75.0); Hemoglobin 14.4 g/dL (14.0-18.0); Mean Corpuscular HGB CONC 34.8 g/dL (32.0-36.0); Mean Corpuscular Hemoglobin 30.8 pg (27.0-31.0); Mean Corpuscular Volume 88.7 fL (78.0-98.0); Mean Platelet Volume 7.8 fL (7.4-10.4); Platelet Count 302 thou/uL (130-400); RBC Distribution Width 11.7 % (11.5-14.5); Red Blood Cell (RBC) Count 4.66 mill/uL (4.70-6.10); White Blood Cell (WBC) Count 7.1 thou/uL (4.8-10.8)
[2021-05-30 05:05] LABS: ALT (SGPT) 20 U/L (8-55); AST (SGOT) 28 U/L (5-34); Acetaminophen Less than 6.0 mcg/mL (10.0-30.0); Albumin 3.9 g/dL (3.5-5.0); Alcohol Less than 10 mg/dL (Less than 10); Alkaline Phosphatase 63 U/L (40-110); Anion Gap 11 mmol/L (10-20); BUN (Urea Nitrogen) 14 mg/dL (8.9-20.6); Bilirubin, Total 0.5 mg/dL (0.2-1.2); Calc. Creatinine Clearance 0 mL/min (70-130); Calcium 9.6 mg/dL (7.8-10.44); Carbon Dioxide 28 mmol/L (22-29); Chloride 105 mmol/L (98-107); Globulin 2.3 g/dL (2.4-3.5); Glucose 99 mg/dL (70-105); Potassium 4.3 mmol/L (3.5-5.1); Protein, Total 6.2 g/dL (6.0-8.3); Salicylate Less than 8.0 mg/dL (15.0-30.0); Sodium 140 mmol/L (136-145)
[2021-05-30] MEDS ORDERED: traZODone HCl 50 MG TAB ONE (08:52)
[2021-05-30] MEDS ORDERED: Nicotine 14 MG PATCH ONE (09:34)
[2021-05-30] MEDS ORDERED: Nicotine 14 MG PATCH TOP SCH (10:00)
== END 2021-05-30 09:46 ==
LOC: ERS 03:23 → EEVIPCON 03:23 → ERS 09:46
DX: R45.851 Suicidal ideations (principal); R44.3 Hallucinations, unspecified; F17.210 Nicotine dependence, cigarettes, uncomplicated; Z21 Asymptomatic human immunodeficiency virus [HIV] infection status; M25.572 Pain in left ankle and joints of left foot; R51.9 Headache, unspecified
CPT/HCPCS: 36415; 80053; 80306; 80307; 84443; 85025; 99283; 99285

== ENCOUNTER 2022-01-09 17:26 | Emergency (ER) | payer OTHER ==
[2022-01-09 18:08] LABS: #Eosinphils 0.1 thou/uL (0.0-0.7); #Lymphocytes 1.8 thou/uL (1.20-3.40); #Monocytes 0.7 thou/uL (0.11-0.59); #Neutrophils 5.4 thou/uL (1.40-6.50); %Basophils 0.4 % (0.0-1.0); %Eosinophils 0.9 % (0.0-10.0); %Lymphocytes 22.1 % (21.0-51.0); %Monocytes 8.6 % (0.0-10.0); %Neutrophils 68.1 % (42.0-75.0); Hemoglobin 15.4 g/dL (14.0-18.0); Mean Corpuscular HGB CONC 34.5 g/dL (32.0-36.0); Mean Corpuscular Volume 86.9 fL (78.0-98.0); Mean Platelet Volume 7.3 fL (7.4-10.4); Platelet Count 321 thou/uL (130-400); RBC Distribution Width 11.9 % (11.5-14.5); Red Blood Cell (RBC) Count 5.12 mill/uL (4.70-6.10); White Blood Cell (WBC) Count 7.9 thou/uL (4.8-10.8)
[2022-01-09 18:10] LABS: Bacteria/HPF None Seen HPF (None Seen); Bilirubin Negative (Negative); Blood, Urine Negative (Negative); Clarity Clear (Clear); Glucose, Urine (Dipstick) Normal (Negative); Ketone, Urine Trace mg/dL (Negative); Leukocyte Negative Leu/uL (Negative); Nitrite Negative (Negative); Protein, Urine (Dipstick) 30 mg/dL (Neg-Trace); RBC/HPF 0-3 HPF (0-3); Specific Gravity, Urine 1.038 (1.002-1.036); Squamous Epithelial 0-3 HPF (0-3); WBC/HPF 0-3 HPF (0-3); pH, Urine 5.5 (5.0-9.0)
[2022-01-09 18:11] LABS: Amphetamine Detected (NotDetected); Barbiturates Screen Not Detected (NotDetected); Benzodiazepine Screen Not Detected (NotDetected); Cocaine Metabolite Screen Detected (NotDetected); Methadone Not Detected (NotDetected); Methamphetamine Detected (NotDetected); Opiate Screen Not Detected (NotDetected); Oxycodone Screen Not Detected (NotDetected); Phencyclidine (PCP) Not Detected (NotDetected); THC/Cannabinoid Screen Detected (NotDetected); Tricyclic Screen Not Detected (NotDetected)
[2022-01-09 18:28] LABS: ALT (SGPT) 12 U/L (8-55); AST (SGOT) 13 U/L (5-34); Albumin 4.3 g/dL (3.5-5.0); Alcohol Less than 10 mg/dL (Less than 10); Alkaline Phosphatase 63 U/L (40-110); Anion Gap 11 mmol/L (10-20); BUN (Urea Nitrogen) 20 mg/dL (8.9-20.6); Bilirubin, Total 0.9 mg/dL (0.2-1.2); CK (CPK) 97 U/L (30-200); Calc. Creatinine Clearance 0 mL/min (70-130); Calcium 9.8 mg/dL (7.8-10.44); Carbon Dioxide 28 mmol/L (22-29); Chloride 105 mmol/L (98-107); Globulin 3.1 g/dL (2.4-3.5); Glucose 99 mg/dL (70-105); Potassium 3.8 mmol/L (3.5-5.1); Protein, Total 7.4 g/dL (6.0-8.3); Sodium 140 mmol/L (136-145)
[2022-01-09 18:32] LABS: Acetaminophen Less than 10.0 mcg/mL (10.0-30.0); Alcohol Less than 10 mg/dL (Less than 10); Salicylate Less than 8.0 mg/dL (15.0-30.0)
== END 2022-01-11 17:10 | disposition home or self-care (01) ==
LOC: ERS 17:26
DX: F31.9 Bipolar disorder, unspecified (principal); R44.0 Auditory hallucinations; F19.10 Other psychoactive substance abuse, uncomplicated; R45.850 Homicidal ideations; F17.210 Nicotine dependence, cigarettes, uncomplicated; Z87.19 Personal history of other diseases of the digestive system; Z79.899 Other long term (current) drug therapy
CPT/HCPCS: 36415; 80053; 80306; 80307; 81003; 81015; 82550; 84443; 85025; 93005

== ENCOUNTER 2022-01-26 06:25 | Emergency (ER) | payer OTHER ==
[2022-01-26 07:18] LABS: #Basophils 0.1 thou/uL (0.0-0.2); #Eosinphils 0.1 thou/uL (0.0-0.7); #Lymphocytes 1.7 thou/uL (1.20-3.40); #Monocytes 0.6 thou/uL (0.11-0.59); #Neutrophils 6.1 thou/uL (1.40-6.50); %Basophils 1.2 % (0.0-1.0); %Eosinophils 0.7 % (0.0-10.0); %Lymphocytes 19.9 % (21.0-51.0); %Monocytes 7.4 % (0.0-10.0); %Neutrophils 70.8 % (42.0-75.0); Hemoglobin 15.9 g/dL (14.0-18.0); Mean Corpuscular Hemoglobin 30.3 pg (27.0-31.0); Mean Corpuscular Volume 88.9 fL (78.0-98.0); Mean Platelet Volume 7.6 fL (7.4-10.4); Platelet Count 274 thou/uL (130-400); RBC Distribution Width 11.7 % (11.5-14.5); Red Blood Cell (RBC) Count 5.24 mill/uL (4.70-6.10); White Blood Cell (WBC) Count 8.6 thou/uL (4.8-10.8)
[2022-01-26 07:34] LABS: ALT (SGPT) 16 U/L (8-55); AST (SGOT) 17 U/L (5-34); Albumin 3.9 g/dL (3.5-5.0); Alkaline Phosphatase 65 U/L (40-110); Anion Gap 14 mmol/L (10-20); BUN (Urea Nitrogen) 18 mg/dL (8.9-20.6); Bilirubin, Total 0.7 mg/dL (0.2-1.2); Calc. Creatinine Clearance 0 mL/min (70-130); Calcium 9.3 mg/dL (7.8-10.44); Carbon Dioxide 28 mmol/L (22-29); Chloride 103 mmol/L (98-107); Globulin 3.4 g/dL (2.4-3.5); Glucose 68 mg/dL (70-105); Potassium 3.9 mmol/L (3.5-5.1); Protein, Total 7.3 g/dL (6.0-8.3); Sodium 141 mmol/L (136-145)
[2022-01-26 07:42] LABS: Acetaminophen Less than 10.0 mcg/mL (10.0-30.0); Alcohol Less than 10 mg/dL (Less than 10); Salicylate Less than 8.0 mg/dL (15.0-30.0)
[2022-01-26 08:30] LABS: Amphetamine Detected (NotDetected); Barbiturates Screen Not Detected (NotDetected); Benzodiazepine Screen Not Detected (NotDetected); Cocaine Metabolite Screen Not Detected (NotDetected); Methadone Not Detected (NotDetected); Methamphetamine Detected (NotDetected); Opiate Screen Not Detected (NotDetected); Oxycodone Screen Not Detected (NotDetected); Phencyclidine (PCP) Not Detected (NotDetected); THC/Cannabinoid Screen Detected (NotDetected); Tricyclic Screen Not Detected (NotDetected)
[2022-01-26 09:31] LABS: SARS-CoV-2 NAA Rapid Test DETECTED (NotDetected)
[2022-01-27] MEDS ORDERED: hydrOXYzine 25 MG TAB ONE (16:58)
[2022-01-27] MEDS ORDERED: Acetaminophen 500 MG TAB ONE (16:58)
[2022-01-27] MEDS ORDERED: Sulfameth/Trimethoprim DS 800-160mg TAB ONE (16:58)
== END 2022-01-26 15:42 ==
LOC: ERS 06:25
DX: U07.1 COVID-19 (principal); F23 Brief psychotic disorder; F15.10 Other stimulant abuse, uncomplicated; F17.210 Nicotine dependence, cigarettes, uncomplicated
CPT/HCPCS: 36415; 80053; 80306; 80307; 84443; 85025; 93005; U0002

== ENCOUNTER 2022-07-09 14:29 | Emergency (ER) | payer OTHER ==
[2022-07-09 15:32] LABS: Hemoglobin 14.7 g/dL (14.0-18.0); Mean Corpuscular HGB CONC 34.7 g/dL (32.0-36.0); Mean Corpuscular Hemoglobin 30.8 pg (27.0-31.0); Mean Corpuscular Volume 88.8 fl (78.0-98.0); Mean Platelet Volume 8.1 fL (7.4-10.4); Platelet Count 279 10x3/uL (130-400); RBC Distribution Width 11.3 % (11.5-14.5); Red Blood Cell (RBC) Count 4.77 mill/uL (4.70-6.10); White Blood Cell (WBC) Count 3.8 10x3/uL (4.8-10.8)
[2022-07-09 15:46] LABS: Band 4 % (5-11); Lymphocytes 29 % (21-51); MDiff Complete? YES; Monocytes 11 % (0-10); Neutrophil 40 % (42-75); Platelet Morphology Comment Appears Adequate; RBC Morphology Normal; Reactive Lymphocytes 15 % (0-10)
[2022-07-09] MEDS ORDERED: Ondansetron ODT 4 MG TAB ONE (15:46)
[2022-07-09 15:52] LABS: ALT (SGPT) 14 U/L (8-55); AST (SGOT) 19 U/L (5-34); Albumin 3.9 g/dL (3.5-5.0); Alkaline Phosphatase 54 U/L (40-110); Anion Gap 13 mmol/L (10-20); BUN (Urea Nitrogen) 12 mg/dL (8.9-20.6); Bilirubin, Total 0.5 mg/dL (0.2-1.2); Calc. Creatinine Clearance 0 mL/min (70-130); Calcium 9.2 mg/dL (7.8-10.44); Carbon Dioxide 28 mmol/L (22-29); Chloride 100 mmol/L (98-107); Estimated GFR 106; Globulin 2.6 g/dL (2.4-3.5); Glucose 89 mg/dL (70-105); Lipase 12 U/L (8-78); Potassium 3.5 mmol/L (3.5-5.1); Protein, Total 6.5 g/dL (6.0-8.3); Sodium 137 mmol/L (136-145)
[2022-07-09 17:17] LABS: Bacteria/HPF None Seen HPF (None Seen); Bilirubin 1+ (Negative); Blood, Urine Negative (Negative); Clarity Clear (Clear); Glucose, Urine (Dipstick) Normal (Negative); Ketone, Urine 80 mg/dL (Negative); Leukocyte Negative Leu/uL (Negative); Nitrite Negative (Negative); Protein, Urine (Dipstick) 30 mg/dL (Neg-Trace); RBC/HPF 0-3 HPF (0-3); Squamous Epithelial 0-3 HPF (0-3); WBC/HPF 0-3 HPF (0-3)
== END 2022-07-09 18:20 | disposition home or self-care (01) ==
LOC: ERS 14:29
DX: B34.9 Viral infection, unspecified (principal); R11.10 Vomiting, unspecified; R19.7 Diarrhea, unspecified; Z21 Asymptomatic human immunodeficiency virus [HIV] infection status; F17.200 Nicotine dependence, unspecified, uncomplicated; Z79.899 Other long term (current) drug therapy
CPT/HCPCS: 36415; 80053; 81003; 81015; 83690; 85025; 99284; Q0162

== ENCOUNTER 2022-07-16 09:18 | Emergency (ER) | payer OTHER | END 2022-07-16 11:27 | disposition home or self-care (01) | LOC: ERS 09:18 | DX: R11.2 Nausea with vomiting, unspecified (principal); R05.9 Cough, unspecified; F17.200 Nicotine dependence, unspecified, uncomplicated | CPT/HCPCS: 99283 ==